=== PATIENT | male | born 1950 | race Caucasian/White ===

== ENCOUNTER 2018-04-27 00:12 | Emergency (ER) | END 2018-04-27 01:35 | disposition home or self-care (01) ==

== ENCOUNTER → 2019-02-25 | Emergency (ER) | payer MEDICARE, OTHER ==
[~2019-02-25] VITALS: Ht 165.1 cm; Wt 78.0 kg
[~2019-02-25] MED LIST: AZIT250T PO; BEN25 PO; CALA177S8 TOP; CEPH-443 PO; CRES20 PO; HC30CR25 TOP; HYDR-843 PO; IBUP-1542 PO; METF-405 PO; PRED20TA PO; RANI150T35 PO; RANI75TA13 PO
[2019-02-25 16:11] VITALS: BP 124/70; PULSE 70; RESP 18; Ht 165.1 cm; Wt 78.0 kg
--- NOTE | 2019-02-25 16:37 | ERD ---
ER Documentation Chief Complaint Chief Complaint OSKAR FOOT RASH HPI 68-year-old male presented to ED for lesions on his left ankle left leg, left hand, right foot x3 days. Patient states the lesions itch and cannot recall any aggravating factor such as bug bite. Patient states he first noticed him about 3 days ago. Patient denies any allergies to medication. Patient denies any shortness of breath, fever, chills, night sweats. Patient states his only past medical history of diabetes and high cholesterol. ROS All systems reviewed and are negative except as per history of present illness. Medications Home Meds Active Scripts Ranitidine Hcl* (Zantac*) 75 Mg Tablet, 75 MG PO BID for 7 Days, TAB Prov:KRIS FUNES PA-C 02/25/19 Hydrocortisone* Topical (Hydrocortisone* Topical) 2.5%-28.3 Gm Cream..g., 1 APPLIC TOP BID, #1 TUB Prov:KRIS FUNES PA-C 02/25/19 Diphenhydramine Hcl* (Benadryl*) 25 Mg Cap, 25 MG PO Q6, #30 CAP Prov:KRIS FUNES PA-C 02/25/19 Calamine with Zinc Oxide* (Calamine with Zinc Oxide*) 177 Ml Suspension, 1 APPLIC TOP Q4H PRN, #1 BOT Prov:AMELIA ALVARADO NP 04/27/18 Hydroxyzine Hcl* (Hydroxyzine Hcl*) 25 Mg Tablet, 25 MG PO Q8H PRN for ITCHING, #30 TAB Prov:AMELIA ALVARADO NP 04/27/18 Cephalexin* (Keflex*) 500 Mg Capsule, 500 MG PO QID for 10 Days, CAP Prov:AMELIA ALVARADO NP 04/27/18 Ibuprofen* (Ibuprofen*) 600 Mg Tablet, 600 MG PO Q6, #14 TAB Prov:ADELINA HERNANDEZ PA-C 01/17/15 Prednisone* (Prednisone*) 20 Mg Tab, 40 MG PO DAILY for 4 Days, TAB Prov:ADELINA HERNANDEZ PA-C 01/17/15 Azithromycin* (Zithromax*) 250 Mg Tablet, 250 MG PO .ChuyPACK DIRECTED, #6 TAB TAKE 500 MG (2 TABS) THE FIRST DAY THEN 250 MG (1 TAB) DAYS 2-5 Prov:ADELINA HERNANDEZ PA-C 01/17/15 Reported Medications Metformin Hcl (Metformin Hcl ER) 500 Mg Tab.er.24, 500 MG PO DAILY 10/23/13 Rosuvastatin Calcium* (Crestor*) 20 Mg Tablet, 20 MG PO HS 10/23/13 Discontinued Scripts Ranitidine Hcl* (Zantac*) 150 Mg Tablet, 150 MG PO HS PRN for ALLERGIC REACTION, #30 TAB Prov:KRIS FUNES PA-C 02/25/19 Allergies Allergies: Coded Allergies: No Known Allergy (Unverified , 04/27/18) PMhx/Soc History of Surgery: Yes (JAW SURGERY 40 YEARS AGO) Anesthesia Reaction: No Hx Neurological Disorder: No Hx Respiratory Disorders: No Hx Cardiac Disorders: Yes (high cholesterol) Hx Psychiatric Problems: No Hx Miscellaneous Medical Probl: Yes (kidney problem, DM) Hx Alcohol Use: No Hx Substance Use: No Hx Tobacco Use: No FmHx Family History: No diabetes, No coronary disease, No other Physical Exam Vitals Vital Signs Date Temp Pulse Resp B/P (MAP) Pulse Ox O2 O2 Flow FiO2 Time Delivery Rate 02/25/19 98.1 70 18 124/70 99 16:11 (88) Physical Exam Const: No acute distress Resp: Clear to auscultation bilaterally Cardio: Regular rate and rhythm, no murmurs Abd: Soft, non tender, non distended. Normal bowel sounds Skin: Erythematous raised lesions located on left anterior leg, left foot, left hand, right foot. Back: No midline or flank tenderness Ext: Erythematous raised lesions located on left anterior leg, left foot, left hand, right foot. Patient has no deformity contusions or swelling to his extremities he is able to ambulate without pain he has full range of motion neurovascular exam was unremarkable. Procedures/MDM Medical decision makin-year-old male presented to ED for multiple skin rashes located on his legs and left hand. Physical exam revealed nonblanching erythematous lesions that appear to be bug bites. Patient denies any allergies to medication. Patient states he does not have any animals in his house. Patient states that the lesions do itch. There is no drainage or streaking and the lesions do not appear to be spreading like a rash ,but more consistent with bedbug or fleabites. Patient has good pulse motor sensation in the extremities. At this time I have low suspicion for cellulitis, sepsis, toxic epidural necrolysis, abscess, cellulitis, herpes zoster, viral exanthem,, irritant contact dermatitis, fungal infection, insect bite, impetigo, dermatitis. I advised the patient to use hydrocortisone topical, Zantac, Benadryl for relief. I advised the patient should follow-up his primary care provider 1 to 2 days regarding this issue. I advised the patient if symptoms worsen he can return to ER immediately I advised the patient and if symptoms do not worsen he may eventually need to see a attendant campground. Patient no further questions upon discharge and is in agreement to the treatment plan. Prescription for home: Hydrocortisone topical Zantac Benadryl I have discussed with the patient proper use and common side effects to expert with the medication . I advised the patient/family to speak with the pharmacist dispensing the medication to be advised of any potential drug interactions with other medication or supplements they may be taking. Discharge: At this time, patient is stable for discharge and outpatient management. I have instructed the patient to follow-up with his\her primary care physician in 1 to 2 days. I have discussed with the patient the possibility of needing to see a specialist for further work-up and imaging studies if symptoms persist. I have instructed the patient to promptly return to the ER for any new or worsening symptoms including increased pain, fever, nausea, vomiting, weakness or LOC. The patient and\or family expressed understanding of and agreement with this plan. All questions were answered. Home care instructions were provided. Disclaimer: Inadvertent spelling and grammatical errors are likely due to EHR\dictation software use and do not reflect on the overall quality of patient care. Also, please note that the electronic time recorded on the note does not necessarily reflect the actual time of the patient encounter. Departure Diagnosis: Primary Impression: Dermatitis Condition: Stable Patient Instructions: Dermatitis, Non-Specific Referrals: COMM[facility] CLIN[facility] YOU HAVE RECEIVED A MEDICAL SCREENING EXAM AND THE RESULTS INDICATE THAT YOU DO NOT HAVE A CONDITION THAT REQUIRES URGENT TREATMENT IN THE EMERGENCY DEPARTMENT. FURTHER EVALUATION AND TREATMENT OF YOUR CONDITION CAN WAIT UNTIL YOU ARE SEEN IN YOUR DOCTORS OFFICE WITHIN THE NEXT 1-2 DAYS. IT IS YOUR RESPONSIBILITY TO MAKE AN APPOINTMENT FOR FOLOW-UP CARE. IF YOU HAVE A PRIMARY DOCTOR --you should call your primary doctor and schedule an appointment IF YOU DO NOT HAVE A PRIMARY DOCTOR YOU CAN CALL OUR PHYSICIAN REFERRAL HOTLINE AT IF YOU CAN NOT AFFORD TO SEE A PHYSICIAN YOU CAN CHOSE FROM THE FOLLOWING [facility] [address] [place] [facility] [address] [facility] [address] [facility] [address] [facility] [address] [facility] [address] [facility]. [facility] YOU HAVE RECEIVED A MEDICAL SCREENING EXAM AND THE RESULTS INDICATE THAT YOU DO NOT HAVE A CONDITION THAT REQUIRES URGENT TREATMENT IN THE EMERGENCY DEPARTMENT. FURTHER EVALUATION AND TREATMENT OF YOUR CONDITION CAN WAIT UNTIL YOU ARE SEEN IN YOUR DOCTORS OFFICE WITHIN THE NEXT 1-2 DAYS. IT IS YOUR RESPONSIBILITY TO MAKE AN APPOINTMENT FOR FOLOW-UP CARE. IF YOU HAVE A PRIMARY DOCTOR --you should call your primary doctor and schedule and appointment IF YOU DO NOT HAVE A PRIMARY DOCTOR YOU CAN CALL OUR PHYSICIAN REFERRAL HOTLINE AT . IF YOU CAN NOT AFFORD TO SEE A PHYSICIAN YOU CAN CHOSE FROM THE FOLLOWING [facility]: [facility] [address] [place] [address] [facility] [address] [place] [address] [facility] [address] [place] [address] Additional Instructions: Call your primary care doctor TOMORROW for an appointment during the next 1-2 days.See the doctor sooner or return here if your condition worsens before your appointment time. KRIS FUNES PA-C Feb 25, 2019 16:36
== END | disposition home or self-care (01) ==
LOC: FTE 16:09
DX: L30.9 Dermatitis, unspecified (principal); E11.9 Type 2 diabetes mellitus without complications; Z79.84 Long term (current) use of oral hypoglycemic drugs
CPT/HCPCS: 99282